=== PATIENT | male | born 1975 | race Caucasian/White ===

== ENCOUNTER 2021-11-27 22:26 | Emergency (ER) | payer OTHER, SELFPAY ==
[2021-11-27 23:03] VITALS: BP 132/74; PULSE 72; RESP 16; TEMP 37; O2SAT 97; BMI 25.1
--- NOTE | 2021-11-27 23:25 | ED.WOUNDLAC ---
HPI - Wound/Laceration General Chief Complaint: Wound/Laceration Stated Complaint: Foot lac Time Seen by Provider: 11/27/21 23:14 Source: patient Mode of arrival: ambulatory Limitations: no limitations History of Present Illness HPI narrative: 46 yo [place] cut bottom of foot on ? shell while getting into river cleaned it with paper towel but then was in river/water today got home around 9pm and washed it then Onset (ago): hour(s) (2pm today ) Extremity Location: left: foot Place: other (river) Patient tetanus UTD: No Context: accidental Associated symptoms: pain Treatments prior to arrival: other (washed it about 7 hours later) Related Data Previous Rx's Medication Instructions Recorded doxycycline hyclate 100 mg tablet 100 mg PO BID 10 days #20 tabs 11/27/21 Allergies Allergy/AdvReac Type Severity Reaction Status Date / Time No Known Allergies Allergy Verified 11/27/21 23:07 Review of Systems Review of Systems: Constitutional : No Fever, No Chills, Cardiovascular : No Chest Pain, No SOB Respiratory : No Dyspnea Gastrointestinal : No abdominal pain Musculoskeletal : No Joint Swelling Skin : No rash, positive skin laceration Neuro : No Weakness, No Numbness PMFSH Past Medical History Attestation statement: The following information was validated with the patient. Medical History No pertinent past medical history Social History Social History (Updated 11/27/21 @ 23:53 by Brenna Rolon DO) Patient Tobacco Use Status: Never used Tobacco Advance Directives: No Physical Exam Vital Signs: Vital Signs: Last Vital Signs Temp 98.6 F 11/27/21 23:03 Pulse 72 11/27/21 23:03 Resp 16 11/27/21 23:03 BP 132/74 11/27/21 23:03 Pulse Ox 97 11/27/21 23:03 O2 Del Method 11/27/21 23:03 BMI result Body Mass Index 25.1 Appearance: Alert. Oriented X3. No acute distress. Eyes: Pupils equal, round and reactive to light. ENT: Pharynx normal. Neck: Normal inspection. Neck supple. CVS:Pulses normal. Respiratory: No respiratory distress. Abdomen: atraumatic Skin: Skin warm and dry. Normal skin color. Extremities: No lower extremity edema. L foot under 2nd metatarsal plantar surface 2cm superficial avulsion no surrounding erythema/edema/crepitus/no FB felt/no discoloration/no fluctuance Neuro: Oriented X 3. No motor deficit. No sensory deficit. MDM - Wound/Laceration MDM Narrative Medical decision making narrative: 46 yo male no PMH here with avulsion to skin on bottom of left foot while jumping into the river today at 2pm. He reports now pain and some mild swelling to the foot - I do not appreciate swelling, crepitus, erythema. The wound was only cleaned with a paper towel and no fresh water for 7 hours. He was irrigated here with copious irrigation including betadine. 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 He denies FB issues and I do not feel FB on exam. The wound is old and was contaminated I do not feel comfortable applying suture but it approximated and closed well with steri strips - given strict precautions to return Procedures Laceration Laceration 1: Site: lower extremity (plantar surface of foot under 2nd metatarsal region) Side (If applicable): left Size (cm): 2 Description: flap Depth: simple, single layer Pre-repair: wound explored and irrigated extensively (with betadine wash as well) Size (cm): other (steri strips) Discharge Plan Discharge Clinical Impression: Laceration Patient Disposition: Home, Self-Care Instructions: Laceration (ED), Steristrips (ED) Additional Instructions: return to ED for any worsening symptoms or concerns keep wound clean and dry for the next 5 days do not get wet, do not wear dirty boots or shoes, keep it covered with clean socks and dressings monitor for redness swelling and if you have severe pain or fevers - you would notice redness on top of the foot change dressing daily Prescriptions: New doxycycline hyclate 100 mg tablet 100 mg PO BID 10 Days Qty: 20 0RF Stand Alone Forms: Work/School Release Interventions: ED Discharge Assessment Last Done: 11/27/21 23:52 Discharge Date/Time: 11/27/21 23:53
[2021-11-27] MEDS: Diphth,Pertus(ACell),Tet Adult 0.5 ML SYRINGE IM (23:45)
== END 2021-11-27 23:53 | disposition home or self-care (01) ==
PROVIDERS: Emergency Provider Emergency Medicine; PCP Internal Medicine
DX: S91.312A Laceration without foreign body, left foot, initial encounter (principal); W26.8XXA Contact with other sharp object(s), not elsewhere classified, initial encounter; Y93.11 Activity, swimming; Y92.828 Other wilderness area as the place of occurrence of the external cause; Y99.8 Other external cause status
CPT/HCPCS: 90471; 90715; 99282; 99284